=== PATIENT | male | born 1945 | race Caucasian/White ===

== ENCOUNTER 2020-08-19 20:54 | Emergency (ER) | payer MEDICARE, BC ==
[~2020-08-19] VITALS: Ht 175.3 cm; Wt 99.8 kg
[2020-08-20] MEDS ORDERED: ELIQUIS5 M3 PO (02:23)
[2020-08-20] MEDS ORDERED: SPIRONOLACTONE25 MG PO (02:23)
[2020-08-20] MEDS ORDERED: ISOSORBIDE MONO30 MG PO (02:23)
[2020-08-20] MEDS ORDERED: ROSUVASTATIN CA40 MG PO (02:23)
[2020-08-20] MEDS ORDERED: FUROSEMIDE40 MG PO (02:24)
[2020-08-20] MEDS ORDERED: ALLO300 PO (02:24)
[2020-08-20] MEDS ORDERED: EZETIMIBE10 M6 PO (02:24)
[2020-08-20] MEDS ORDERED: ADALAT CC PO (02:24)
[2020-08-20] MEDS ORDERED: AMOCLA875 PO (06:06)
== END 2020-08-20 06:15 | disposition home or self-care (01) ==
LOC: ER 20:54
DX: R04.0 Epistaxis (principal); Z79.01 Long term (current) use of anticoagulants
CPT/HCPCS: 30901; 99283

== ENCOUNTER 2020-08-23 10:21 | Emergency (ER) | payer MEDICARE, BC ==
[~2020-08-23] VITALS: Ht 167.6 cm; Wt 74.8 kg
[~2020-08-23 10:21] MED LIST: ADALAT CC PO; ALLO300 PO; AMOCLA875 PO; ELIQUIS5 M3 PO; EZETIMIBE10 M6 PO; FUROSEMIDE40 MG PO; ISOSORBIDE MONO30 MG PO; ROSUVASTATIN CA40 MG PO; SPIRONOLACTONE25 MG PO
== END 2020-08-23 11:37 | disposition home or self-care (01) ==
LOC: ER 10:21
DX: Z48.00 Encounter for change or removal of nonsurgical wound dressing (principal)
CPT/HCPCS: 99282

== ENCOUNTER 2024-08-29 06:18 | Day surgery (SDC) | payer MEDICARE, BC ==
[2024-08-29] VITALS (12 sets, daily range): BP systolic 95–133; BP diastolic 57–82
[~2024-08-29] VITALS: Ht 172.7 cm; Wt 90.2 kg
[~2024-08-29 06:18] MED LIST changes: +BUME2 PO; +CLOP75 PO; +Carvedilol12.5 MG PO; +JARDIANCE10 MG PO
[2024-08-29] MEDS ORDERED: Dexmedetomidine HCL 200 MCG / 2 ML ONE (06:51)
[2024-08-29] MEDS ORDERED: Sugammadex Sodium 200 MG/2ML SDV (100 MG/ML) ONE (06:56)
[2024-08-29] MEDS ORDERED: Metoclopramide HCl 5MG / ML 2ML Vial ONE (06:56)
[2024-08-29] MEDS ORDERED: Rocuronium Bromide 10 MG/ML 5ML Injection IV ONE ×3 (06:56→08:34)
[2024-08-29] MEDS ORDERED: Ondansetron HCl 2 MG / ML 2ML Vial ONE (06:56)
[2024-08-29] MEDS ORDERED: Dexamethasone Sod Phos 10 MG/ML 1ML VIAL ONE (06:56)
[2024-08-29] MEDS ORDERED: Ondansetron HCl 2 MG / ML 2ML Vial IV PRN (07:10)
[2024-08-29] MEDS ORDERED: CeFAZolin Sodium 2,000 MG in NS 100 ML IV SCH (07:10)
[2024-08-29] MEDS ORDERED: ePHEDrine Sulfate 50 MG/ML 1ML Injection IV PRN (07:10)
[2024-08-29] MEDS ORDERED: HYDROmorphone HCl/Pf 1MG SYR IV PRN ×2 (07:10)
[2024-08-29] MEDS ORDERED: Albuterol 2.5 MG/3 ML VIAL INH PRN (07:10)
[2024-08-29] MEDS ORDERED: FentaNYL Citrate 50 MCG/ML 2 ML Injection IV PRN ×2 (07:10)
--- NOTE | 2024-08-29 07:10 | NUR ---
Ambulatory in Day SurgeryPre-Op teaching done. Pt verbalizes understanding. History, Chart, Medications and Allergies reviewed before start of procedure.Patient confirms NPO status and agrees with scheduled surgery. Patient reports completing Chlorhexadine shower X2 prior to admission to hospital.Patient States Post-Procedure ride home has been arranged. PT HAD HEARING AIDS BUT IS STILL [place]. PT HAS BOTH UPPER AND LOWER DENTURES THAT HE LEFT AT HOME. PT HAS H/O AFIB. 3-LEAD EKG PLACED FOR IRREGULAR HR. PT HAVING OCCASIONAL PVC W/ 3-4 SEC PAUSE. DENIES SOB, CP. PT AMBULATES W/O DIFFICULTY
[2024-08-29] MEDS ORDERED: CeFAZolin Sodium 2,000 MG VIAL ONE (07:21)
--- NOTE | 2024-08-29 07:23 | NUR ---
DR. ROSADO AT BS TALKING W/ PT. NEW EKG ORDERED. PT REMAINS ON 3-LEAD EKG FOR TO REVIEW
[2024-08-29] MEDS ORDERED: Bupivacaine 0.5% HCl 5 MG/ML 30MLVIAL ONE (07:48)
[2024-08-29] MEDS ORDERED: HYDROmorphone HCl/Pf 1MG SYR ONE (07:51)
[2024-08-29] MEDS ORDERED: ePHEDrine Sulfate 50 MG/ML 1ML Injection ONE (08:13)
[2024-08-29] MEDS ORDERED: Ketorolac Tromethamine 30mg Vial ONE (08:35)
[2024-08-29] MEDS ORDERED: HYDROcodone 5-APAP 325 TAB PO PRN (10:00)
--- NOTE | 2024-08-29 11:58 | NUR ---
TO STEP POST PROCEDURE. REPORTS MILD 2/10 PAIN. ABD SITES X 3 CDI WITH SURGICAL GLUE IN PLACE. DENIES PO AT THIS TIME. CARDIAC RHYTHM IRREGULAR, BASELINE FOR PT. MONITOR STRIP IN CHART. AT BEDSIDE. PT/FAMILY VERBALIZED UNDERSTANDING OF DC INSTRUCTIONS/FOLLOW UP/WOUND CARE/MEDICATIONS. 1 NORCO GIVEN ORDERED. Discharged via wheelchair to private car for ride home.
== END 2024-08-29 11:45 | disposition home or self-care (01) ==
LOC: ORSCMMR 06:18 → ORD 08:00 → ORSCMMR 11:45
DX: K43.6 Other and unspecified ventral hernia with obstruction, without gangrene (principal); I12.9 Hypertensive chronic kidney disease with stage 1 through stage 4 chronic kidney disease, or unspecified chronic kidney disease; N18.9 Chronic kidney disease, unspecified; I25.10 Atherosclerotic heart disease of native coronary artery without angina pectoris; I48.0 Paroxysmal atrial fibrillation; Z79.01 Long term (current) use of anticoagulants; I50.9 Heart failure, unspecified; E66.9 Obesity, unspecified; Z68.30 Body mass index [BMI] 30.0-30.9, adult; Z79.899 Other long term (current) drug therapy
CPT/HCPCS: 93005; 93010; A9270; C1781; J0690; J1100; J1171; J1885; J2405; J2704; J2765; J7120

== ENCOUNTER 2024-11-10 15:31 | Emergency (ER) | payer MEDICARE, BC ==
[~2024-11-10] VITALS: Ht 182.9 cm; Wt 90.7 kg
[2024-11-10 18:16] LABS: BASOPHILS ABSOLUTE AUTO 0.11 K/mm3 (0.00-0.23); BASOPHILS PERCENT AUTO 1 % (0-2); EOSINOPHILS ABSOLUTE AUTO 0.16 K/mm3 (0.00-0.68); EOSINOPHILS PERCENT AUTO 2 % (0-6); Hematocrit 44.7 % (37.0-53.0); Hemoglobin 15.3 g/dL (13.5-17.5); IMMATURE GRAN ABSOLUTE AUTO 0.04 K/mm3 (0.00-0.10); IMMATURE GRAN PERCENT AUTO 0 % (0-1); LYMPHOCYTES ABSOLUTE AUTO 1.55 K/mm3 (0.84-5.20); LYMPHOCYTES PERCENT AUTO 15 % (21-46); MONOCYTES ABSOLUTE AUTO 1.22 K/mm3 (0.16-1.47); MONOCYTES PERCENT AUTO 12 % (4-13); Mean Corpuscular HGB Conc 34.2 g/dL (31.5-36.5); Mean Corpuscular Volume 97 fL (80-100); NEUTROPHILS ABSOLUTE AUTO 7.39 K/mm3 (1.96-9.15); NEUTROPHILS PERCENT AUTO 71 % (41-73); NRBC ABSOLUTE 0.00 K/mm3 (0.00-0.02); NRBC Auto 0.0 /100 WBC (0.0-0.2); Platelet Count 330 K/mm3 (150-400); RDW Coefficient Variation 13.2 % (11.7-14.2); RDW Standard Deviation 47.3 fL (35.1-46.3)
[2024-11-10 18:25] LABS: Anion Gap 13.0 mmol/L (3-11); Blood Urea Nitrogen 37.0 mg/dL (8-24); CO2, Blood 25.0 mmol/L (21-32); Calcium, Blood 9.2 mg/dL (8.5-10.1); Chloride, Blood 99.0 mmol/L (98-108); Creatinine, Blood 1.81 mg/dL (0.60-1.20); Glucose, Blood 122.0 mg/dL (70-99); Potassium, Blood 4.1 mmol/L (3.5-5.5); Sodium, Blood 133.0 mmol/L (136-145)
[2024-11-10 19:36] VITALS: BP 132/80
[2024-11-10] MEDS ORDERED: ACET500 PO (19:58)
== END 2024-11-10 20:07 | disposition home or self-care (01) ==
LOC: ER 15:31
PROVIDERS: Emergency Medicine
DX: S80.11XA Contusion of right lower leg, initial encounter (principal); I48.91 Unspecified atrial fibrillation; I50.9 Heart failure, unspecified; M79.604 Pain in right leg; N18.30 Chronic kidney disease, stage 3 unspecified; D63.1 Anemia in chronic kidney disease; N25.81 Secondary hyperparathyroidism of renal origin; E78.00 Pure hypercholesterolemia, unspecified; R76.9 Abnormal immunological finding in serum, unspecified; R94.5 Abnormal results of liver function studies; R94.6 Abnormal results of thyroid function studies; X58.XXXA Exposure to other specified factors, initial encounter; Z79.01 Long term (current) use of anticoagulants; Z79.84 Long term (current) use of oral hypoglycemic drugs; Z79.899 Other long term (current) drug therapy; Z96.651 Presence of right artificial knee joint
CPT/HCPCS: 36415; 73562-RT; 73706; 80048; 80069; 85018; 85025; 85651; 86140; 93971; 99284-25; Q9967

== ENCOUNTER → 2024-11-26 | Outpatient (CLI) | payer MEDICARE, BC ==
[~2024-11-26] MED LIST changes: +ACET500 PO
[2024-11-26 11:48] LABS: Protein, Urine Quantitative 11.2 mg/dL (0.0-11.9)
[2024-11-26 12:00] LABS: Microalbumin, Urine Quant. <5.000 mg/L (0.000-20.000)
== END ==
LOC: LAB SHORT 10:09 → LAB 10:09
PROVIDERS: Internal Medicine Nephrology
DX: N18.30 Chronic kidney disease, stage 3 unspecified (principal); N25.81 Secondary hyperparathyroidism of renal origin; E55.9 Vitamin D deficiency, unspecified; E78.00 Pure hypercholesterolemia, unspecified; R76.9 Abnormal immunological finding in serum, unspecified; R94.5 Abnormal results of liver function studies; R94.6 Abnormal results of thyroid function studies
CPT/HCPCS: 82043; 82570; 84156